=== PATIENT | female | born 1960 | race Caucasian/White ===

== ENCOUNTER 2020-01-03 09:34 | Inpatient (IN) | payer BC ==
--- NOTE | 2020-01-03 10:01 | ED ---
General Adult HPI - General Chief complaint: Psychiatric Symptoms Stated complaint: Mental Health Time Seen by Provider: 01/03/20 09:47 Source: patient, RN notes reviewed, old records reviewed Mode of arrival: ambulatory Limitations: no limitations - History of Present Illness Initial comments: 59-year-old female presenting for evaluation of depression and suicidal ideation. Patient has history of anxiety and depression currently on medication. She states that over the past 1 week she's had increased thoughts of suicide with several different plans to hurt herself. She has not had any suicide attempt. She denies drug ingestion or alcohol ingestion. She states that approximately one month ago she did attempt to cut her left wrist. No other recent attempts at self-harm. No physical complaints. - Related Data Allergies Allergy/AdvReac Type Severity Reaction Status Date / Time Penicillins Allergy Unknown Verified 01/03/20 09:43 Childhood sulfamethoxazole Allergy Rash/Hives Verified 01/03/20 09:43 [From Bactrim] trimethoprim [From Bactrim] Allergy Rash/Hives Verified 01/03/20 09:43 Review of Systems ROS Statement: Those systems with pertinent positive or pertinent negative responses have been documented in the HPI. ROS Other: All systems not noted in ROS Statement are negative. Past Medical History Past Medical History: Thyroid Disorder Additional Past Medical History / Comment(s): past colon ca History of Any Multi-Drug Resistant Organisms: None Reported Past Surgical History: Bariatric Surgery, Bowel Resection, Cholecystectomy, Tubal Ligation Past Psychological History: Depression Smoking Status: Never smoker Past Alcohol Use History: Daily Past Drug Use History: None Reported General Exam Limitations: no limitations General appearance: alert, anxious Head exam: Present: atraumatic, normocephalic Eye exam: Present: normal appearance, PERRL ENT exam: Present: normal exam Neck exam: Present: normal inspection. Absent: tenderness, meningismus Respiratory exam: Present: normal lung sounds bilaterally. Absent: respiratory distress, wheezes Cardiovascular Exam: Present: regular rate, normal rhythm GI/Abdominal exam: Present: soft. Absent: distended, tenderness, guarding Extremities exam: Present: normal inspection, normal capillary refill Neurological exam: Present: alert, oriented X3, CN II-XII intact. Absent: motor sensory deficit Psychiatric exam: Present: depressed, anxious, suicidal ideation Skin exam: Present: warm, dry, intact. Absent: cyanosis, diaphoretic Course Vital Signs 01/03/20 01/03/20 09:35 13:32 Temperature 98.2 F 98.6 F Pulse Rate 89 74 Respiratory 18 18 Rate Blood Pressure 137/79 123/85 O2 Sat by Pulse 98 97 Oximetry - Reevaluation(s) Reevaluation #1: 01/03/20 10:01 Patient cleared for EPS evaluation. Medical Decision Making - Medical Decision Making Patient has been evaluated by EPS and will be admitted for depression, suicidal ideation. She will be admitted for further psychiatric evaluation and treatment. Patient is agreeable with plan. - Lab Data Lab Results 01/03/20 Range/Units 11:00 Urine Opiates Screen Not Detected (NotDetected) Ur Oxycodone Screen Not Detected (NotDetected) Urine Methadone Screen Not Detected (NotDetected) Ur Propoxyphene Screen Not Detected (NotDetected) Ur Barbiturates Screen Not Detected (NotDetected) U Tricyclic Antidepress Not Detected (NotDetected) Ur Phencyclidine Scrn Not Detected (NotDetected) Ur Amphetamines Screen Not Detected (NotDetected) U Methamphetamines Scrn Not Detected (NotDetected) U Benzodiazepines Scrn Not Detected (NotDetected) Urine Cocaine Screen Not Detected (NotDetected) U Marijuana (THC) Screen Not Detected (NotDetected) Disposition Clinical Impression: Suicidal ideation, Depression Disposition: ADMITTED IP TO THIS [facility] Condition: Stable Is patient prescribed a controlled substance at d/c from ED?: No Referrals: Nonstaff,Physician [Primary Care Provider] - 1-2 days Decision to Admit Reason: Admit from EC Decision Date: 01/03/20 Decision Time: 14:54
[2020-01-03 11:28] LABS: Amphetamine Screen,Urine Not Detected (NotDetected); Barbiturate Screen,Urine Not Detected (NotDetected); Benzodiazepines Screen,Urine Not Detected (NotDetected); Cocaine Screen,Urine Not Detected (NotDetected); Methadone Screen, Urine Not Detected (NotDetected); Opiate Screen,Urine Not Detected (NotDetected); Oxycodone Screen, Urine Not Detected (NotDetected); Phencyclidine Screen,Urine Not Detected (NotDetected); Tricyclic Antidepressant,Urine Not Detected (NotDetected); Urn Cannabinoid Scrn Not Detected (NotDetected)
[2020-01-03] MEDS ORDERED: LORazepam 1 MG TAB PO STA (14:53)
[2020-01-03] MEDS ORDERED: ACETAMINOPHEN TAB 325 MG TAB PO PRN (15:40)
[2020-01-03] MEDS ORDERED: MAGNESIUM HYDROXIDE 2,400 MG/10 ML CUP PO PRN (15:40)
[2020-01-03] MEDS ORDERED: MAG HYDROX/AL HYDROX/SIMETH 30 ML CUP PO PRN (15:40)
[2020-01-03] MEDS ORDERED: traZODone HCL 50 MG TAB PO PRN (15:50)
[2020-01-03] MEDS ORDERED: LORazepam 1 MG TAB PO PRN (16:07)
--- NOTE | 2020-01-03 17:22 | P.MDCNMH ---
History of Present Illness H&P Date: 01/03/20 Chief Complaint: Depression 59-year-old female presenting for worsening depression and suicidal ideation. Patient has history of hypothyroidism on levothyroxine and hx of anxiety and depression currently on lexapro. She states that over the past 1 week she's had increased thoughts of suicide with several different plans to hurt herself. She has not had any suicide attempt. She drinks alcohol on a daily basis, no smoking. No drugs. No recent illness. She states that her sister and she has been having trouble with both of her sons, one relapsing on cocaine and the other being douglass, something she just found out about. No recent illness, no cough, no fevers or chills. No pain. No sob. Past Medical History Past Medical History: Thyroid Disorder Additional Past Medical History / Comment(s): past colon ca History of Any Multi-Drug Resistant Organisms: None Reported Past Surgical History: Bariatric Surgery, Bowel Resection, Cholecystectomy, Tubal Ligation Past Psychological History: Depression Smoking Status: Never smoker Past Alcohol Use History: Daily Past Drug Use History: None Reported Medications and Allergies Allergies Allergy/AdvReac Type Severity Reaction Status Date / Time Penicillins Allergy Unknown Verified 01/03/20 16:51 Childhood sulfamethoxazole Allergy Rash/Hives Verified 01/03/20 16:51 [From Bactrim] trimethoprim [From Bactrim] Allergy Rash/Hives Verified 01/03/20 16:51 Physical Exam Vitals: Vital Signs Temp Pulse Pulse Resp BP BP Pulse Ox 01/03/20 16:25 97.9 F 77 16 122/80 01/03/20 15:42 98.5 F 97 18 118/74 96 01/03/20 13:32 98.6 F 74 18 123/85 97 01/03/20 09:35 98.2 F 89 18 137/79 98 Intake and Output 01/03/20 01/03/20 01/03/20 06:59 14:59 22:59 Other: Weight 68.039 kg 68.039 kg Cranial Nerve Examination - Cranial Nerves Cranial Nerve II- Optic: Intact Cranial Nerve III- Oculomotor: Intact Cranial Nerve IV- Trochlear: Intact Cranial Nerve V- Trigeminal: Intact Cranial Nerve - Abducens: Intact Cranial Nerve VII- Facial: Intact Cranial Nerve VIII- Auditory: Intact Cranial Nerve IX- Glossopharyngeal: Intact Cranial Nerve X- Vagus: Intact Cranial Nerve XI- Accessory: Intact Cranial Nerve XII- Hypoglossal: Intact Assessment and Plan Plan: Suicidal ideation Depression Hypothyroidism ETOH abuse Health maintenance Evaluation by psychiatry pending Resume levothyroxine TSH pending Counseled to quit alcohol Check CBC, cmp, A1c, lipid profile.
[2020-01-04 10:38] LABS: Basophils % (A) 1 %; Eosinophils # (A) 0.1 k/uL (0-0.7); Eosinophils % (A) 3 %; HCT 42.5 % (34.0-46.0); HGB 13.4 gm/dL (11.4-16.0); Lymphocytes # (A) 0.8 k/uL (1.0-4.8); Lymphocytes % (A) 23 %; MCH 33.4 pg (25.0-35.0); MCHC 31.4 g/dL (31.0-37.0); MCV 106.4 fL (80.0-100.0); Macrocytosis Moderate; Mean Platelet Volume 8.2; Monocytes # (A) 0.2 k/uL (0-1.0); Monocytes % (A) 6 %; Neutrophils # (A) 2.2 k/uL (1.3-7.7); Neutrophils % (A) 66 %; Platelet Count 155 k/uL (150-450); RDW 12.7 % (11.5-15.5); WBC 3.4 k/uL (3.8-10.6)
[2020-01-04 10:57] LABS: Albumin 4.5 g/dL (3.5-5.0); Calcium 9.4 mg/dL (8.4-10.2); Potassium 5.2 mmol/L (3.5-5.1); Total Bilirubin 2.1 mg/dL (0.2-1.3); Total Protein 7.1 g/dL (6.3-8.2)
[2020-01-04] MEDS: SERTRALINE 50 MG TAB PO SCH (12:13)
--- NOTE | 2020-01-04 13:30 | P.HP ---
Psychiatric H&P - . H&P Date: 01/04/20 History & Physical: Allergies Allergy/AdvReac Type Severity Reaction Status Date / Time Penicillins Allergy Unknown Verified 01/03/20 16:51 Childhood sulfamethoxazole Allergy Rash/Hives Verified 01/03/20 16:51 From Bactrim trimethoprim From Bactrim Allergy Rash/Hives Verified 01/03/20 16:51 Vital Signs Temp 97.6 F 01/04/20 00:21 Pulse 78 01/04/20 00:21 Resp 16 01/04/20 00:21 BP 90/66 01/04/20 00:21 Pulse Ox 98 01/04/20 00:21 Intake & Output 01/03/20 01/04/20 01/04/20 18:59 06:59 18:59 Weight 68.039 kg Laboratory Last Values WBC 3.4 k/uL (3.8-10.6) L 01/04/20 09:51 RBC 4.00 m/uL (3.80-5.40) 01/04/20 09:51 Hgb 13.4 gm/dL (11.4-16.0) 01/04/20 09:51 Hct 42.5 % (34.0-46.0) 01/04/20 09:51 MCV 106.4 fL (80.0-100.0) H 01/04/20 09:51 MCH 33.4 pg (25.0-35.0) 01/04/20 09:51 MCHC 31.4 g/dL (31.0-37.0) 01/04/20 09:51 RDW 12.7 % (11.5-15.5) 01/04/20 09:51 Plt Count 155 k/uL (150-450) 01/04/20 09:51 Neutrophils % 66 % 01/04/20 09:51 Lymphocytes % 23 % 01/04/20 09:51 Monocytes % 6 % 01/04/20 09:51 Eosinophils % 3 % 01/04/20 09:51 Basophils % 1 % 01/04/20 09:51 Neutrophils # 2.2 k/uL (1.3-7.7) 01/04/20 09:51 Lymphocytes # 0.8 k/uL (1.0-4.8) L 01/04/20 09:51 Monocytes # 0.2 k/uL (0-1.0) 01/04/20 09:51 Eosinophils # 0.1 k/uL (0-0.7) 01/04/20 09:51 Basophils # 0.0 k/uL (0-0.2) 01/04/20 09:51 Macrocytosis Moderate 01/04/20 09:51 Sodium 136 mmol/L (137-145) L 01/04/20 09:51 Potassium 5.2 mmol/L (3.5-5.1) H 01/04/20 09:51 Chloride 100 mmol/L (98-107) 01/04/20 09:51 Carbon Dioxide 26 mmol/L (22-30) 01/04/20 09:51 Anion Gap 10 mmol/L 01/04/20 09:51 BUN 17 mg/dL (7-17) 01/04/20 09:51 Creatinine 0.88 mg/dL (0.52-1.04) 01/04/20 09:51 Est GFR (CKD-EPI)AfAm 83 (>60 ml/min/1.73 sqM) 01/04/20 09:51 Est GFR (CKD-EPI)NonAf 72 (>60 ml/min/1.73 sqM) 01/04/20 09:51 Glucose 95 mg/dL (74-99) 01/04/20 09:51 Calcium 9.4 mg/dL (8.4-10.2) 01/04/20 09:51 Total Bilirubin 2.1 mg/dL (0.2-1.3) H 01/04/20 09:51 AST 59 U/L (14-36) H 01/04/20 09:51 ALT 45 U/L (4-34) H 01/04/20 09:51 Alkaline Phosphatase 111 U/L (38-126) 01/04/20 09:51 Total Protein 7.1 g/dL (6.3-8.2) 01/04/20 09:51 Albumin 4.5 g/dL (3.5-5.0) 01/04/20 09:51 Triglycerides 104 mg/dL (<150) 01/04/20 09:51 Cholesterol 269 mg/dL (<200) H 01/04/20 09:51 LDL Cholesterol, Calc 152 mg/dL (0-99) H 01/04/20 09:51 HDL Cholesterol 96 mg/dL (40-60) H 01/04/20 09:51 TSH 4.640 mIU/L (0.465-4.680) 01/04/20 09:51 Urine Opiates Screen Not Detected (NotDetected) 01/03/20 11:00 Ur Oxycodone Screen Not Detected (NotDetected) 01/03/20 11:00 Urine Methadone Screen Not Detected (NotDetected) 01/03/20 11:00 Ur Propoxyphene Screen Not Detected (NotDetected) 01/03/20 11:00 Ur Barbiturates Screen Not Detected (NotDetected) 01/03/20 11:00 U Tricyclic Antidepress Not Detected (NotDetected) 01/03/20 11:00 Ur Phencyclidine Scrn Not Detected (NotDetected) 01/03/20 11:00 Ur Amphetamines Screen Not Detected (NotDetected) 01/03/20 11:00 U Methamphetamines Scrn Not Detected (NotDetected) 01/03/20 11:00 U Benzodiazepines Scrn Not Detected (NotDetected) 01/03/20 11:00 Urine Cocaine Screen Not Detected (NotDetected) 01/03/20 11:00 U Marijuana (THC) Screen Not Detected (NotDetected) 01/03/20 11:00 01/04/20 13:21 IDENTIFYING DATA: Patient is a 59-year-old female currently lives with her in a house has 2 sons and currently works for the school system. HPI: Patient presented to the hospital with concerns about depression and suicidal thoughts. Patient has a apparent history of depression and anxiety and is previously on Prozac 20 mg however was ineffective. According to ER report patient has been feeling suicidal for 1 week with a plan to hurt herself and also apparently cut her left wrist one month ago. Patient was interviewed by magnetic tape typewriter operator today and was tearful soft spoken and endorsing depression and anxiety since 2012. She also endorses alcohol abuse/dependence and drinking 3 beers +2 glasses of wine per night. She was claiming that she is feeling overwhelmed and feeling worthless as of lately and spoke about having ongoing family issues. She states that her sister has terminal cancer, she states her other sister 2 years ago. She also spoke about one of her sons claiming that he was homosexual recently and blaming her about a lot of past events in his life. She also states that she is retiring February 06 which is a big stressor for her. He states that her sleep has been poor as several awakenings and dreams of wanting to kill herself with a "telecommunications analyst knife in the harman". She currently claims that she is having some shakes with regards to her alcohol withdrawal however denies any delirium tremens in the past or seizures from alcohol withdrawal. She claims that "I'm not needed and as you get older you just disappear". Patient denies any suicidal or homicidal ideations intent or plan. At this time patient denies any auditory or visual hallucinations. Patient denies any flight of ideas racing thoughts and increased in goal directed behavior. Patient admits to using alcohol as stated above, denies any other recreational drug use including cigarettes. PAST PSYCHIATRIC HISTORY: Patient states that she has a history of depression and anxiety. Claims to have been on Prozac 20 mg daily which was prescribed by her primary care physician. Patient denies any previous psychiatric hospitalizations. Patient denies any psychiatric outpatient follow-up. She states that she had 1 suicide attempt in the past where she overdosed on pills 2 years ago. PMH: Thyroid disorder and previously had colon cancer. ALLERGIES: as per EMR CHEMICAL DEPENDENCY HISTORY: as per HPI FAMILY PSYCHIATRIC/SUBSTANCE USE HISTORY: States that her sister had bipolar disorder SOCIAL HISTORY: Patient was born and raised in [place] and moved throughout [place] and now lives in [place]. She currently lives with her in a house has 2 sons and works for a school system. She states that she completed her bachelor's degree in University and denies any legal problems or imprisonment.. MENTAL STATUS EXAM: General Appearance: Patient appears to be short in stature, stated age is alert, directable, tearful during the interview. Patient appears to have fair hygiene and grooming. Wearing street clothing. Behavior: Patient is seated without any agitated behavior. Tearful today. Speech: Patient's speech is fluent and nonpressured. Soft Spoken. Mood/Affect: Patient reports their mood is depressed and anxious, affect is congruent Suicidality/Homicidality: Patient denies having any homicidal ideation intent or plan. Denies any suicidal ideations intent or plan Perceptions: Patient denies any visual hallucinations and denies any auditory hallucinations Though content/process: There is no evidence of any delusional thought content and thought process is linear and goal-directed. Perseverates on her stressors and depressive thoughts, catastrophizing. Memory and concentration: AOX3, grossly intact for the purposes of this session. Can spell "WORLD" backwards Judgment and insight: poor STRENGTHS/WEAKNESSES: strength is that patient is resilient. Weakness is that patient has significant alcohol dependence. INTELLECT: average IMPRESSIONS: Major depressive disorder, severe, recurrent with psychotic features Anxiety disorder unspecified Alcohol use disorder, currently withdrawal PLAN: -Patient is admitted under voluntary status to [facility] for stabilization of psychiatric symptoms and safety. Patient signed adult voluntary form and medication consent and is placed in patient's chart. -Medications : Will start patient on Zoloft 50 mg daily for mood/anxiety, trazodone 25 mg daily at bedtime for insomnia/mood, Librium taper 20 mg 3 times a day for alcohol withdrawal. -Ativan and Geodon PRN for agitation/aggression -Started thiamine, MVM, FA for etoh use -CIWA protocol with Ativan PRN for ETOH withdrawal -Patient was informed of the risks, benefits and side effects of the medication and patient verbally consented to taking the medications. Patient signed med consent form and was placed in chart. -Internal Medicine consult to perform medical evaluation and physical. -NRT -need this patient does not smoke. -SW on board for discharge planning. Encourage patient to participate in groups to work on coping skills. Patient was counselled on substance abuse and desired to cut back on use, we'll discuss further about options for treatment for patient's cravings and also substance use programs in the community versus inpatient rehab.
[2020-01-04] MEDS: MULTIVITAMINS, THERA 1 EACH TAB PO SCH (13:54)
[2020-01-04] MEDS: FOLIC ACID 1 MG TAB PO SCH (13:54)
[2020-01-04] MEDS: THIAMINE 100 MG TAB PO SCH (13:54)
[2020-01-04] MEDS ORDERED: traZODone HCL 50 MG TAB PO SCH (21:00)
[2020-01-05] MEDS: MULTIVITAMINS, THERA 1 EACH TAB PO SCH (09:37)
[2020-01-05] MEDS: THIAMINE 100 MG TAB PO SCH (09:37)
[2020-01-05] MEDS: FOLIC ACID 1 MG TAB PO SCH (09:37)
--- NOTE | 2020-01-05 09:38 | P.PN ---
Progress Note - Text Progress Note Date: 01/05/20 Interval History: Patient was seen wandering the hallways and was directable and agreeable to sp brii with senior mortgage underwriter in the office. Patient appears to be tearful once again today when speaking about her depression and anxiety. She continues to harbor severe guilt and spoke about having an when she was in college and repeatedly claimed that "I'm going to hell and I know it so nothing matters". She continues to endorse worthlessness and hopelessness. She also spoke about feeling that she is "being judged" by other people including her employer. She did state that she felt mild improvement yesterday after she took the Zoloft however claims that she had an outburst when meeting with the public health social worker and stated that "everybody hates me". She states that she had fragmented sleep last night and only stopped approximately 4 hours. At this time patient denies any suicidal or homical ideations, intent or plan. Patient denies any auditory, visual hallucinations and denies any paranoia or delusions. Patient denies any side effects from the medications and has been compliant with meds. Mental Status Exam: General Appearance: Patient appears to be short in stature, stated age is alert, directable, tearful during the interview. Patient appears to have fair hygiene and grooming. Wearing street clothing. Behavior: Patient is seated without any agitated behavior. Tearful today. Speech: Patient's speech is fluent and nonpressured. Intent is to be Soft Spoken. Mood/Affect: Patient reports their mood is depressed and anxious, affect is congruent Suicidality/Homicidality: Patient denies having any homicidal ideation intent or plan. Denies any suicidal ideations intent or plan Perceptions: Patient denies any visual hallucinations and denies any auditory hallucinations Though content/process: There is no evidence of any delusional thought content and thought process is linear and goal-directed. Perseverates on her stressors and depressive thoughts, catastrophizing. Severe guilt. Memory and concentration: AOX3, grossly intact for the purposes of this session. Judgment and insight: poor, mild improvement. Assessment Major depressive disorder, severe, recurrent with psychotic features Anxiety disorder unspecified Alcohol use disorder, currently withdrawal Plan: -Patient continues to meet criteria for inpatient psychiatric admission for symptom stabilization and safety. Patient has signed adult voluntary form and medication consent and was placed in patient's chart. -Medications: Increase Zoloft to 100 mg daily for mood/anxiety starting tomorrow, increase trazodone to 50 mg nightly for insomnia/mood. Continuing with Librium taper down to 10 mg 3 times a day for alcohol withdrawal. -Continue with thiamine, MVM, FA for etoh use -CIWA protocol with Ativan PRN for ETOH withdrawal. Continue to monitor vitals. -When necessary Ativan for agitation/aggression. -NRT -need to this patient does not smoke. -SW on board for discharge planning. Encouraged the patient to participate in milieu. We'll continue to discuss further about options for treatment for patient's cravings and also substance use programs in the community versus inpatient rehab. Likely discharge early to mid next week.
[2020-01-05] MEDS: SERTRALINE 50 MG TAB PO SCH (09:47)
[2020-01-05] MEDS: traZODone HCL 50 MG TAB PO SCH (20:56)
[2020-01-06 08:22] LABS: African American GFR (CKD) >90 (>60 ml/min/1.73 sqM); Anion Gap 8 mmol/L; Blood Urea Nitrogen 17 mg/dL (7-17); Calcium 8.8 mg/dL (8.4-10.2); Carbon Dioxide 23 mmol/L (22-30); Chloride 106 mmol/L (98-107); Glucose 82 mg/dL (74-99); Non-African American GFR(CKD) >90 (>60 ml/min/1.73 sqM); Sodium 137 mmol/L (137-145)
[2020-01-06] MEDS: FOLIC ACID 1 MG TAB PO SCH (09:45)
[2020-01-06] MEDS: MULTIVITAMINS, THERA 1 EACH TAB PO SCH (09:46)
[2020-01-06] MEDS: THIAMINE 100 MG TAB PO SCH (09:46)
[2020-01-06] MEDS: SERTRALINE 100 MG TAB PO SCH (09:46)
--- NOTE | 2020-01-06 19:31 | P.PN ---
Progress Note - Text Progress Note Date: 01/06/20 Interval history: Patient is seen in cross coverage today. She reports that she slept better last night, still had nightmares but they weren't is scary. Her mood is doing better today. He does not seem to verbalize any adverse psychotropic medication side effects. Mental status exam: She is alert and cooperative with the interview. Her speech is fluent not rapid or pressured. Her thought processes are organized. Her mood is improved today. She does not verbalize any thoughts of harm to self or others. No evidence of psychosis or agitation. Plan: Patient will be maintained on current psychotropic medication regimen. Continue to monitor for any medication side effects and monitor her ongoing response to treatment.
[2020-01-06] MEDS: traZODone HCL 50 MG TAB PO SCH (21:16)
[2020-01-07] MEDS: FOLIC ACID 1 MG TAB PO SCH (09:01)
[2020-01-07] MEDS: MULTIVITAMINS, THERA 1 EACH TAB PO SCH (09:01)
[2020-01-07] MEDS: SERTRALINE 100 MG TAB PO SCH (09:01)
[2020-01-07] MEDS: THIAMINE 100 MG TAB PO SCH (09:01)
--- NOTE | 2020-01-07 20:34 | P.PN ---
Progress Note - Text Progress Note Date: 01/07/20 Interval history: Patient is seen in cross coverage again today. She does describe that her mood had been doing well but got a phone call from her relay that she was sent patel and a note from her boss, this brought up the feelings of stress. She reports concerns of going back to work right away and concerned about developing thoughts of suicide again. She does not seem to voice any adverse psychotropic medication side effects. Mental status exam: She is alert and cooperative with the interview. She describes her mood was doing well but after the phone call from her she is feeling a lot of stress and appears distraught at times. She does not verbalize any active thoughts of suicide but is concerned about thoughts of suicide resurfacing if she returns to work right away. She does not verbalize any thoughts of harm to others. No evidence of active psychosis or agitation. Plan: Patient will be maintained on current psychotropic medication regimen. Continue to monitor for any medication side effects and monitor her ongoing response to treatment. She is given support, encouraged ongoing outpatient treatment.
[2020-01-07] MEDS: traZODone HCL 50 MG TAB PO SCH (21:07)
[2020-01-08] MEDS: MULTIVITAMINS, THERA 1 EACH TAB PO SCH (10:00)
[2020-01-08] MEDS: THIAMINE 100 MG TAB PO SCH (10:00)
[2020-01-08] MEDS: FOLIC ACID 1 MG TAB PO SCH (10:00)
[2020-01-08] MEDS: SERTRALINE 100 MG TAB PO SCH (10:00)
[2020-01-08] MEDS ORDERED: SERTRALINE 50 MG TAB PO STA (11:22)
--- NOTE | 2020-01-08 11:22 | P.PN ---
Progress Note - Text Progress Note Date: 01/08/20 Interval History: Patient was seen wandering the hallways after group and was directable and agr eeable to speak with senior writer in the office. Patient appears to be tearful once again this morning when speaking about her stressors. Patient continues to catastrophize and jump to conclusions while speaking about her stressors and also perseverates on excessive guilt. She claims that she gave her son "his mental illness" and also spoke of her boss at work sending her patel but stating that "she is trying to manipulate me to come back to work and she doesn't care about me". She continues to endorse severe depression and anxiety. She continues to state that "I don't know what I'd do to myself if I'm released from the hospital" referring to potential harm to herself. She continues to endorse worthlessness and hopelessness. She states that the Zoloft has been helping mildly at this time and is agreeable to have it increased. She states that she had fragmented sleep last night and only stopped approximately 4-5 hours. At this time patient denies any suicidal or homical ideations, intent or plan. Patient denies any auditory, visual hallucinations and denies any paranoia or delusions. Patient denies any side effects from the medications and has been compliant with meds. Mental Status Exam: General Appearance: Patient appears to be short in stature, stated age is alert, directable, tearful during the interview. Patient appears to have fair hygiene and grooming. Wearing street clothing. Behavior: Patient is seated without any agitated behavior. Tearful today. Speech: Patient's speech is fluent and nonpressured. Soft Spoken. Mood/Affect: Patient reports their mood is depressed and anxious, affect is congruent Suicidality/Homicidality: Patient denies having any homicidal ideation intent or plan. Denies any suicidal ideations intent or plan Perceptions: Patient denies any visual hallucinations and denies any auditory hallucinations Though content/process: There is no evidence of any delusional thought content and thought process is linear and goal-directed. Perseverates on Depressive thoughts, catastrophizing. Excessive guilt. Memory and concentration: AOX3, grossly intact for the purposes of this session. Judgment and insight: poor, mild improvement. Assessment Major depressive disorder, severe, recurrent with psychotic features Anxiety disorder unspecified Alcohol use disorder, currently withdrawal Plan: -Patient continues to meet criteria for inpatient psychiatric admission for symptom stabilization and safety. Patient has signed adult voluntary form and medication consent and was placed in patient's chart. -Medications: Increased Zoloft to 150 mg daily for mood/anxiety starting tomorrow, increase trazodone to 100 mg nightly for insomnia/mood. Continuing to decrease Librium taper down to 10 mg 2 times a day for alcohol withdrawal. -Continue with thiamine, MVM, FA for etoh use -CIWA protocol with Ativan PRN for ETOH withdrawal. Continue to monitor vitals. -When necessary Ativan for agitation/aggression. -NRT -need to this patient does not smoke. -SW on board for discharge planning. Encouraged the patient to participate in milieu. Patient and executive secretary social welfare are continuing to explore different treatment options for substance use programs in the community versus inpatient rehab. Likely discharge 2-3 days.
[2020-01-08] MEDS: traZODone HCL 100 MG TAB PO SCH (20:15)
[2020-01-09] MEDS: MULTIVITAMINS, THERA 1 EACH TAB PO SCH (08:53)
[2020-01-09] MEDS: FOLIC ACID 1 MG TAB PO SCH (08:53)
[2020-01-09] MEDS: SERTRALINE 50 MG TAB PO SCH (08:53)
[2020-01-09] MEDS: THIAMINE 100 MG TAB PO SCH (08:53)
--- NOTE | 2020-01-09 09:32 | P.PN ---
Progress Note - Text Progress Note Date: 01/09/20 Interval History: Patient was seen laying down in her bed this morning was directable and agreea ble to speak with specification writer in the office. Patient appears to be less tearful today and was less preoccupied with her stressors. She spoke about being "so angry" at her boss yesterday however stated that "I realize what's the point I can't do anything about what she does to me and it's only affecting me". She also states that she does realize that she is "jumping to conclusions" which is making her feel more overwhelmed and having excessive guilt. She claims that her anxiety and depression have been mildly improving since yesterday and claims that thet is helping her mood. She was less preoccupied today with worthlessness and hopelessness. She claims that she was able to sleep better last night on the increase in trazodone. She states that she is getting along with her roommate and learning "a different perspective" from her. At this time patient denies any suicidal or homical ideations, intent or plan. Patient denies any auditory, visual hallucinations and denies any paranoia or delusions. Patient denies any side effects from the medications and has been compliant with meds. Mental Status Exam: General Appearance: Patient appears to be short in stature, stated age is alert, directable, less tearful today. Patient appears to have fair hygiene and grooming. Wearing street clothing. Behavior: Patient is seated without any agitated behavior. Less tearful today Speech: Patient's speech is fluent and nonpressured. Soft Spoken. Mood/Affect: Patient reports their mood is improving mildly, affect is congruent Suicidality/Homicidality: Patient denies having any homicidal ideation intent or plan. Denies any suicidal ideations intent or plan Perceptions: Patient denies any visual hallucinations and denies any auditory hallucinations Though content/process: There is no evidence of any delusional thought content and thought process is linear and goal-directed. Less preoccupied with depressive thoughts and guilt. Memory and concentration: AOX3, grossly intact for the purposes of this session. Judgment and insight: mild improvement. Assessment Major depressive disorder, severe, recurrent with psychotic features Anxiety disorder unspecified Alcohol use disorder, currently withdrawal Plan: -Patient continues to meet criteria for inpatient psychiatric admission for symptom stabilization and safety. Patient has signed adult voluntary form and medication consent and was placed in patient's chart. -Medications: Continue with Zoloft to 150 mg daily for mood/anxiety. Continue with trazodone to 100 mg nightly for insomnia/mood. Discontinued Librium. Patient is agreeable to start naltrexone today 50 mg by mouth daily for alcohol cravings. -Continue with thiamine, MVM, FA for etoh use -CIWA protocol with Ativan PRN for ETOH withdrawal. Continue to monitor vitals. -When necessary Ativan for agitation/aggression. -NRT -need to this patient does not smoke. -SW on board for discharge planning. Encouraged the patient to participate in milieu. Patient and social director are continuing to explore different treatment options for substance use programs in the community versus. Likely discharge tomorrow.
[2020-01-09] MEDS: NALTREXONE HCL 50 MG TAB PO SCH (09:49)
[2020-01-09] MEDS: traZODone HCL 100 MG TAB PO SCH (19:58)
[2020-01-10 06:53] VITALS: BP 107/53; PULSE 68; RESP 16
[2020-01-10] MEDS: MULTIVITAMINS, THERA 1 EACH TAB PO SCH (09:02)
[2020-01-10] MEDS: THIAMINE 100 MG TAB PO SCH (09:02)
[2020-01-10] MEDS: SERTRALINE 50 MG TAB PO SCH (09:02)
[2020-01-10] MEDS: NALTREXONE HCL 50 MG TAB PO SCH (09:02)
[2020-01-10] MEDS: FOLIC ACID 1 MG TAB PO SCH (09:02)
--- NOTE | 2020-01-10 09:53 | P.DS ---
Providers Date of admission: 01/03/20 15:18 Expected date of discharge: 01/10/20 Attending physician: Frank Porras MD Consults: 01/03/20 15:40 Consult Physician Routine Consulting Provider: [facility] Consult Reason/Comments: H&P for mental health admission. Do you want consulting provider notified?: Yes Primary care physician: Physician Nonstaff - Discharge Diagnosis(es) (1) Major depressive disorder, recurrent episode, severe Current Visit: Yes Status: Acute Priority: High (2) Anxiety disorder, unspecified Current Visit: Yes Status: Acute Priority: Medium (3) Alcohol use disorder Current Visit: Yes Status: Acute Priority: Medium Hospital Course: Admission HPI: Patient is a 59-year-old female currently lives with her in a house has 2 sons and currently works for the school system. Patient presented to the hospital with concerns about depression and suicidal thoughts. Patient has a apparent history of depression and anxiety and is previously on Prozac 20 mg however was ineffective. According to ER report patient has been feeling suicidal for 1 week with a plan to hurt herself and also apparently cut her left wrist one month ago. Patient was interviewed by check writer salesperson today and was tearful soft spoken and endorsing depression and anxiety since 2012. She also endorses alcohol abuse/dependence and drinking 3 beers +2 glasses of wine per night. She was claiming that she is feeling overwhelmed and feeling worthless as of lately and spoke about having ongoing family issues. She states that her sister has terminal cancer, she states her other sister 2 years ago. She also spoke about one of her sons claiming that he was homosexual recently and blaming her about a lot of past events in his life. She also states that she is retiring February 06 which is a big stressor for her. He states that her sleep has been poor as several awakenings and dreams of wanting to kill herself with a "shoes hand sewer knife in the harman". She currently claims that she is having some shakes with regards to her alcohol withdrawal however denies any delirium tremens in the past or seizures from alcohol withdrawal. She claims that "I'm not needed and as you get older you just disappear". Patient denies any suicidal or homicidal ideations intent or plan. At this time patient denies any auditory or visual hallucinations. Patient denies any flight of ideas racing thoughts and increased in goal directed behavior. Patient admits to using alcohol as stated above, denies any other recreational drug use including cigarettes. Hospital course: Upon admission to the unit patient was initially depressed, anxious with excessive guilt. Patient was however directable and agreeable to commence treatment. Patient got along well with other patients on the unit and followed unit protocol. Patient was compliant with the medications and denied any side effects throughout hospital course. Patient was started on Zoloft and titrated up to a dose of 100 mg daily was 50 mg daily at bedtime for mood/anxiety, trazodone was titrated up to a dose of 100 mg nightly for insomnia/mood, naltrexone was started at 50 mg by mouth daily for alcohol cravings. Patient was withdrawing from alcohol and placed on a Librium taper along with CIWA protocol which was discontinued prior to discharge today. Patient spoke of her stressors and engaged in therapy both group and individual. Patient claims that she worked on her coping skills and distress tolerance. Patient was also seen by medical team for history and physical exam. Throughout the course of the hospitalization patient gradually improved with regards to mood, anxiety, sleep and became future oriented with improved insight and judgment. On the day of discharge patient denied any suicidal or homicidal ideations intent or plan denied any auditory or visual hallucinations. Patient endorsed wanting to live for her health and for her loved ones. The patient denied any access to guns or weapons. Patient denied any paranoia and did not endorse any delusions. Patient does have a significant history of substance abuse and was counseled on abstaining from all substances including alcohol and marijuana. Patient was willing to do AA meetings and therapy as an outpatient to work on her substance use along with taking by mouth naltrexone for cravings. Patient was also counseled on the medications and need for regular compliance and was encouraged to follow-up with their outpatient appointment for mental health and also for primary care. Prior to discharge a family meeting will be arranged by social media content specialist to answer any questions and ensure safety upon discharge. Mental status exam: General Appearance: Patient appears to be stated age is alert, directable and attempts to be cooperative. Patient is in no acute distress and has fair hygiene and grooming Behavior: Patient is calmly seated without any agitated behavior. Speech: Patient's speech is fluent and nonpressured. Mood/Affect: Patient reports their mood is "better", affect is congruent and euthymic. Suicidality/Homicidality: Patient denies having any suicidal or homicidal ideation intent or plan. Perceptions: Patient denies any auditory or visual hallucinations. Though content/process: There is no evidence of any delusional thought content and thought process is linear and goal-directed. [more future oriented] Memory and concentration: AOX3, grossly intact for the purposes of this session. Can spell "WORLD" backwards correctly. Judgment and insight: Improved with guarded prognosis Impression: Major depressive disorder, severe, recurrent with psychotic features Plan: -Continue with discharge today as patient has improved and stabilized psychiatrically and is not currently an imminent threat to herself and/or others. -Continue medications: Zoloft 100 mg daily +50 mg daily at bedtime for mood/anxiety, trazodone 100 mg nightly for insomnia/mood, by mouth naltrexone 50 mg daily for alcohol cravings. Continue with multivitamin, folic acid and thiamine. -Patient was counseled on the need for medication compliance and appropriate follow-up at mental health and also primary care for medical issues. Patient verbalized understanding and agreed. -Social work to arrange for and conduct family meeting to ensure safety upon discharge and answer any questions/concerns. Social work also to arrange for patients follow up appointments for psychiatric care along with follow up with primary care provider. Patient will also receive resources for substance use treatment programs and AA meetings in the community and also referral for individual therapy. -Patient counseled on abstaining from recreational drugs and marijuana and alcohol. Was informed/educated on the adverse effects on their physical and mental health. Patient verbally agreed and understood. -Patient was instructed to return to the hospital or seek immediate medical care if their psychiatric or medical symptoms do worsen or reoccur. Allergies Allergy/AdvReac Type Severity Reaction Status Date / Time Penicillins Allergy Unknown Verified 01/03/20 16:51 Childhood sulfamethoxazole Allergy Rash/Hives Verified 01/03/20 16:51 [From Bactrim] trimethoprim [From Bactrim] Allergy Rash/Hives Verified 01/03/20 16:51 Laboratory Results WBC 3.4 k/uL (3.8-10.6) L 01/04/20 09:51 RBC 4.00 m/uL (3.80-5.40) 01/04/20 09:51 Hgb 13.4 gm/dL (11.4-16.0) 01/04/20 09:51 Hct 42.5 % (34.0-46.0) 01/04/20 09:51 MCV 106.4 fL (80.0-100.0) H 01/04/20 09:51 MCH 33.4 pg (25.0-35.0) 01/04/20 09:51 MCHC 31.4 g/dL (31.0-37.0) 01/04/20 09:51 RDW 12.7 % (11.5-15.5) 01/04/20 09:51 Plt Count 155 k/uL (150-450) 01/04/20 09:51 Neutrophils % 66 % 01/04/20 09:51 Lymphocytes % 23 % 01/04/20 09:51 Monocytes % 6 % 01/04/20 09:51 Eosinophils % 3 % 01/04/20 09:51 Basophils % 1 % 01/04/20 09:51 Neutrophils # 2.2 k/uL (1.3-7.7) 01/04/20 09:51 Lymphocytes # 0.8 k/uL (1.0-4.8) L 01/04/20 09:51 Monocytes # 0.2 k/uL (0-1.0) 01/04/20 09:51 Eosinophils # 0.1 k/uL (0-0.7) 01/04/20 09:51 Basophils # 0.0 k/uL (0-0.2) 01/04/20 09:51 Macrocytosis Moderate 01/04/20 09:51 Sodium 137 mmol/L (137-145) 01/06/20 07:20 Potassium 4.0 mmol/L (3.5-5.1) 01/06/20 07:20 Chloride 106 mmol/L (98-107) 01/06/20 07:20 Carbon Dioxide 23 mmol/L (22-30) 01/06/20 07:20 Anion Gap 8 mmol/L 01/06/20 07:20 BUN 17 mg/dL (7-17) 01/06/20 07:20 Creatinine 0.73 mg/dL (0.52-1.04) 01/06/20 07:20 Est GFR (CKD-EPI)AfAm >90 (>60 ml/min/1.73 sqM) 01/06/20 07:20 Est GFR (CKD-EPI)NonAf >90 (>60 ml/min/1.73 sqM) 01/06/20 07:20 Glucose 82 mg/dL (74-99) 01/06/20 07:20 Calcium 8.8 mg/dL (8.4-10.2) 01/06/20 07:20 Total Bilirubin 2.1 mg/dL (0.2-1.3) H 01/04/20 09:51 AST 59 U/L (14-36) H 01/04/20 09:51 ALT 45 U/L (4-34) H 01/04/20 09:51 Alkaline Phosphatase 111 U/L (38-126) 01/04/20 09:51 Total Protein 7.1 g/dL (6.3-8.2) 01/04/20 09:51 Albumin 4.5 g/dL (3.5-5.0) 01/04/20 09:51 Triglycerides 104 mg/dL (<150) 01/04/20 09:51 Cholesterol 269 mg/dL (<200) H 01/04/20 09:51 LDL Cholesterol, Calc 152 mg/dL (0-99) H 01/04/20 09:51 HDL Cholesterol 96 mg/dL (40-60) H 01/04/20 09:51 TSH 4.640 mIU/L (0.465-4.680) 01/04/20 09:51 Urine Opiates Screen Not Detected (NotDetected) 01/03/20 11:00 Ur Oxycodone Screen Not Detected (NotDetected) 01/03/20 11:00 Urine Methadone Screen Not Detected (NotDetected) 01/03/20 11:00 Ur Propoxyphene Screen Not Detected (NotDetected) 01/03/20 11:00 Ur Barbiturates Screen Not Detected (NotDetected) 01/03/20 11:00 U Tricyclic Antidepress Not Detected (NotDetected) 01/03/20 11:00 Ur Phencyclidine Scrn Not Detected (NotDetected) 01/03/20 11:00 Ur Amphetamines Screen Not Detected (NotDetected) 01/03/20 11:00 U Methamphetamines Scrn Not Detected (NotDetected) 01/03/20 11:00 U Benzodiazepines Scrn Not Detected (NotDetected) 01/03/20 11:00 Urine Cocaine Screen Not Detected (NotDetected) 01/03/20 11:00 U Marijuana (THC) Screen Not Detected (NotDetected) 01/03/20 11:00 Vital Signs Temp 97.9 F 01/10/20 06:32 Pulse 68 01/10/20 06:32 Resp 16 01/10/20 06:32 BP 107/53 01/10/20 06:32 Pulse Ox 99 01/09/20 06:15 Patient Condition at Discharge: Stable Plan - Discharge Summary New Discharge Prescriptions: New traZODone HCL [Desyrel] 100 mg PO HS 30 Days tab Folic Acid 1 mg PO DAILY 30 Days tab Multivitamins, Thera [Multivitamin (formulary)] 1 each PO DAILY 30 Days tab Naltrexone HCl [Revia] 50 mg PO DAILY 30 Days tab Acetaminophen Tab [Tylenol] 650 mg PO Q4HR PRN tab PRN Reason: Pain/Discomfort Thiamine [Vitamin B-1] 100 mg PO DAILY 30 Days tab Sertraline [Zoloft] 50 mg PO HS 30 Days tab Sertraline [Zoloft] 100 mg PO DAILY 30 Days tab Continue Albuterol Sulfate [Ventolin HFA] 2 puff INHALATION RT-Q4H PRN PRN Reason: Shortness Of Breath Discontinued Levothyroxine Sodium [Synthroid] 150 mcg PO WE Levothyroxine Sodium [Synthroid] 75 mcg PO SUMOTUTHFRSA FLUoxetine HCL [PROzac] 20 mg PO DAILY Discharge Medication List Albuterol Sulfate [Ventolin HFA] 2 puff INHALATION RT-Q4H PRN 01/03/20 [History] Acetaminophen Tab [Tylenol] 650 mg PO Q4HR PRN tab 01/10/20 [Rx] Folic Acid 1 mg PO DAILY 30 Days tab 01/10/20 [Rx] Multivitamins, Thera [Multivitamin (formulary)] 1 each PO DAILY 30 Days tab 01/10/20 [Rx] Naltrexone HCl [Revia] 50 mg PO DAILY 30 Days tab 01/10/20 [Rx] Sertraline [Zoloft] 50 mg PO HS 30 Days tab 01/10/20 [Rx] Sertraline [Zoloft] 100 mg PO DAILY 30 Days tab 01/10/20 [Rx] Thiamine [Vitamin B-1] 100 mg PO DAILY 30 Days tab 01/10/20 [Rx] traZODone HCL [Desyrel] 100 mg PO HS 30 Days tab 01/10/20 [Rx] Follow up Appointment(s)/Referral(s): Psychological, LIst [Other] - 01/17/20 10:15 am (Power ) Nonstaff,Physician [Primary Care Provider] - 1-2 days Activity/Diet/Wound Care/Special Instructions: Activity and diet as tolerated. Avoid the use of street drugs and alcohol. Take all medications as prescribed. When you are in need of refills on your medicatio ns please contact your medical provider and/or outpatient psychiatrist to have this done. Please go to scheduled outpatient appointment for aftercare treatment. If symptoms return or become worse, call the crisis line at and/or go to the nearest emergency room for evaluation Discharge Disposition: HOME SELF-CARE
[2020-01-10 13:07] VITALS: TEMP 98
[2020-01-10] MEDS ORDERED: SERTRALINE 50 MG TAB PO SCH (21:00)
[2020-01-11] MEDS ORDERED: SERTRALINE 100 MG TAB PO SCH (09:00)
== END 2020-01-10 12:46 | disposition home or self-care (01) | DRG 885 ==
LOC: EC 09:34 → 3MHU 15:18
PROVIDERS: ADMIT Psychiatry & Neurology Psychiatry; ATTEND Psychiatry & Neurology Psychiatry
DX: F33.3 Major depressive disorder, recurrent, severe with psychotic symptoms (principal); R45.851 Suicidal ideations; F10.239 Alcohol dependence with withdrawal, unspecified; F41.9 Anxiety disorder, unspecified; G47.00 Insomnia, unspecified; Z79.899 Other long term (current) drug therapy; Z81.8 Family history of other mental and behavioral disorders; Z85.038 Personal history of other malignant neoplasm of large intestine; Z91.5 Personal history of self-harm; Z88.0 Allergy status to penicillin; Z88.2 Allergy status to sulfonamides; Z90.49 Acquired absence of other specified parts of digestive tract; Z98.51 Tubal ligation status; Z98.890 Other specified postprocedural states
CPT/HCPCS: 80048; 80053; 80061; 80306; 82075; 84443; 85025; 99285

== ENCOUNTER 2021-04-03 19:08 | Emergency (ER) | payer BC ==
[2021-04-03] MEDS ORDERED: LIDOCAINE 1% INJ 10MG/ML (20 ML MDV) SQ ONE (20:13)
--- NOTE | 2021-04-03 20:17 | ED ---
Wound/Laceration HPI - General Chief Complaint: Wound/Laceration Stated Complaint: Laceration,Rt Hand Time Seen by Provider: 04/03/21 20:10 Source: patient, RN notes reviewed Mode of arrival: ambulatory Limitations: no limitations - History of Present Illness Initial Comments: 60-year-old well-appearing white female, alert and oriented 4, presents to the emergency room with complaints of tenderizing meat and cutting her left index finger. She states that this happened around 6:30 this evening. She states the pain is not that bad at this time. Tetanus shot is up-to-date and she has no medical history, denies any medications on a daily basis. states she is a nonsmoker. -: hour(s) (2) Location: other (Left index finger) Place: home Patient Tetanus UTD: Yes Context: accidental - Related Data Home Medications Medication Instructions Recorded Confirmed Albuterol Sulfate [Ventolin HFA] 2 puff INHALATION RT-Q4H PRN 01/03/20 01/03/20 Previous Rx's Medication Instructions Recorded Acetaminophen Tab [Tylenol] 650 mg PO Q4HR PRN tab 01/10/20 Folic Acid 1 mg PO DAILY 30 Days tab 01/10/20 Multivitamins, Thera [Multivitamin 1 each PO DAILY 30 Days tab 01/10/20 (formulary)] Naltrexone HCl [Revia] 50 mg PO DAILY 30 Days tab 01/10/20 Sertraline [Zoloft] 50 mg PO HS 30 Days tab 01/10/20 Sertraline [Zoloft] 100 mg PO DAILY 30 Days tab 01/10/20 Thiamine [Vitamin B-1] 100 mg PO DAILY 30 Days tab 01/10/20 traZODone HCL [Desyrel] 100 mg PO HS 30 Days tab 01/10/20 Allergies Allergy/AdvReac Type Severity Reaction Status Date / Time Penicillins Allergy Unknown Verified 04/03/21 19:51 Childhood sulfamethoxazole Allergy Rash/Hives Verified 04/03/21 19:51 [From Bactrim] trimethoprim [From Bactrim] Allergy Rash/Hives Verified 04/03/21 19:51 Review of Systems ROS Statement: Those systems with pertinent positive or pertinent negative responses have been documented in the HPI. ROS Other: All systems not noted in ROS Statement are negative. Past Medical History Past Medical History: Thyroid Disorder Additional Past Medical History / Comment(s): past colon ca History of Any Multi-Drug Resistant Organisms: None Reported Past Surgical History: Bariatric Surgery, Bowel Resection, Cholecystectomy, Tubal Ligation Past Psychological History: Depression Smoking Status: Never smoker Past Alcohol Use History: Daily Past Drug Use History: None Reported General Exam Limitations: no limitations General appearance: alert, in no apparent distress Head exam: Present: atraumatic, normocephalic, normal inspection Eye exam: Present: normal appearance Neck exam: Present: full ROM Respiratory exam: Present: normal lung sounds bilaterally. Absent: respiratory distress, wheezes, rales, rhonchi, stridor, accessory muscle use, decreased breath sounds Cardiovascular Exam: Present: regular rate, normal rhythm, normal heart sounds. Absent: systolic murmur, diastolic murmur, rubs, gallop, clicks Right Hand Wrist exam: Present: tenderness, laceration (Distal tip of the left index finger), ecchymosis Back exam: Absent: tenderness, CVA tenderness (R), CVA tenderness (L) Neurological exam: Present: alert, oriented X3, CN II-XII intact Psychiatric exam: Present: normal affect, normal mood Skin exam: Present: warm, dry, intact, normal color. Absent: rash Course Vital Signs 04/03/21 04/03/21 19:48 21:29 Temperature 97.4 F L 98 F Pulse Rate 68 79 Respiratory 22 20 Rate Blood Pressure 160/94 133/79 O2 Sat by Pulse 100 97 Oximetry Procedures - Laceration Laceration #1 Consent Obtained: verbal consent Indication: laceration Site: hand (Left index finger) Description: flap Depth: simple, single layer Anesthetic Used: lidocaine 1% Anesthesia Technique: nerve block Amount (mls): 5 Pre-repair: irrigated extensively Type of Sutures: nylon Size of Sutures: 5-0 Number of Sutures: 5 Technique: simple, interrupted Patient Tolerated Procedure: well Medical Decision Making - Medical Decision Making Flap laceration to the left index finger approximated and closed with 5 sutures after extensive irrigation. Patient states her tetanus shot is up to date. X- ray negative for fracture. Patient was advised to return if any worsening symptoms including signs of infection fever, drainage, increased pain. Case discussed with Dr. Sequeira Disposition Clinical Impression: Laceration Disposition: HOME SELF-CARE Condition: Good Instructions (If sedation given, give patient instructions): Finger Laceration (ED) Additional Instructions: Keep wound clean and dressing dry. Return if any worsening or new symptoms including signs of infection, redness drainage or fevers. Follow-up with the primary care doctor in 7-10 days for suture removal. Is patient prescribed a controlled substance at d/c from ED?: No Referrals: Jerry Bailon MD [Primary Care Provider] - 1-2 days Time of Disposition: 21:00
[2021-04-03] MEDS ORDERED: ACET/COD 300 MG/30 MG STARTER PACK 6 TAB BTL PO STA (21:00)
--- NOTE | 2021-04-03 21:22 | XR ---
EXAMINATION TYPE: XR finger LT DATE OF EXAM: 04/03/2021 COMPARISON: NONE HISTORY: 60 years Female. STUDY INDICATION GIVEN: pain, index finger . TECHNIQUE: 3 radiographs of the right index finger FINDINGS AND IMPRESSION: No acute fracture or dislocation. Mild narrowing of the distal interphalangeal joint space. Mild soft tissue swelling over the index finger.
[2021-04-03 21:32] VITALS: BP 133/79; PULSE 79; RESP 20; TEMP 98
== END 2021-04-03 21:31 | disposition home or self-care (01) ==
LOC: EC 19:08
DX: S61.211A Laceration without foreign body of left index finger without damage to nail, initial encounter (principal); F32.9 Major depressive disorder, single episode, unspecified; Z88.0 Allergy status to penicillin; Z88.1 Allergy status to other antibiotic agents; Z88.2 Allergy status to sulfonamides; Z85.038 Personal history of other malignant neoplasm of large intestine; Z98.84 Bariatric surgery status; Z90.49 Acquired absence of other specified parts of digestive tract; Z98.51 Tubal ligation status; W26.8XXA Contact with other sharp object(s), not elsewhere classified, initial encounter
CPT/HCPCS: 99283; 12001; 73140; J2001